=== PATIENT | female | born 1970 | race Caucasian/White ===

== ENCOUNTER → 2017-01-10 | Day surgery (SDC) | payer MEDICARE, OTHER ==
[~2017-01-10] VITALS: Ht 162.6 cm; Wt 86.1 kg
[~2017-01-10] MED LIST: ACETAMINOPHEN 1000 MG/100 ML VIAL IV ONE; DEXAMETHASONE SOD PHOS 4 MG/ML VIAL ONE; DO NOT ADM ANY ANTICOAGULANT DRUGS XX PRN; FAMOTIDINE 20 MG/2 ML VIAL ONE; MIDAZOLAM HCL 2 MG/2 ML VIAL ONE; ONDANSETRON HCL 4 MG/2 ML VIAL IV PUSH ONE; ONDANSETRON HCL 4 MG/2 ML VIAL IV PUSH PRN; OXCA600T32 PO; PERC5TAB12 PO; PROPOFOL 200 MG/20 ML AMP IV ONE; VITASPR PO; ZONE100C4 PO; ePHEDrine/NS 25 MG/5 ML SYR IV ONE; oxyCODONE/ACETAMINOPHEN 5 MG/325 MG TAB PO PRN
[2017-01-10 10:22] VITALS: BP 107/72; PULSE 62; RESP 20; TEMP 97.7; O2SAT 100
[2017-01-10 10:54] LABS: AUTOMATED NEUTROPHIL # 3.4 TH/MM3 (1.8-7.7); EOSINOPHIL # 0.1 TH/MM3 (0-0.4); EOSINOPHIL % 1.2 % (0.0-4.0); HEMATOCRIT 41.6 % (35.0-46.0); HEMO FLAGS DIFF FINAL; LYMPH % 20.6 % (9.0-44.0); MEAN CELL VOLUME 88.2 FL (80.0-100.0); MEAN CORPUSCULAR HEMOGLOBIN 30.1 PG (27.0-34.0); MEAN CORPUSCULAR HGB CONC 34.1 % (32.0-36.0); MONO % 5.3 % (0.0-8.0); NEUT % 71.9 % (16.0-70.0); PLATELET COUNT 210 TH/MM3 (150-450); RED BLOOD COUNT 4.72 MIL/MM3 (4.00-5.30); RED CELL DISTRIBUTION WIDTH 13.8 % (11.6-17.2); WHITE BLOOD COUNT 4.8 TH/MM3 (4.0-11.0)
--- NOTE | 2017-01-10 11:47 | RADRPT ---
EXAM DATE/TIME: 01/10/2017 10:26 [facility] COMPARISON: No previous studies available for comparison. INDICATIONS : Preop for left side ESWL. MEDICAL HISTORY : Renal calculi. SURGICAL HISTORY : None. ENCOUNTER: Initial ACUITY: 1 day PAIN SCORE: 0/10 LOCATION: Left upper quadrant abdomen FINDINGS: There is an approximately 6 mm calculus projecting over the mid to lower pole of the left kidney. On the right, there is a probable 4 mm lower pole calculus. No definite ureteral stone seen on either si de. Normal bowel gas pattern. No evidence of free air. Patient has an IVC filter. CONCLUSION: Subcentimeter bilateral renal stones faintly seen. Cristóbal Ruiz MD on January 10, 2017 at 11:44 Board Certified Radiologist. This report was verified electronically.
--- NOTE | 2017-01-10 14:22 | PD.OP ---
Operative Report Date of Surgery: Jan 10, 2017 Preoperative Diagnosis: (1) Renal calculus, left Postoperative Diagnosis: (1) Renal calculus, left Procedure: Left extracorporeal shockwave lithotripsy Anesthesia: General Surgeon: Demetri Grayson Microbiology Analyst(s): None Operation and Findings: Indication for procedure: Case of a pleasant 46 year-old female with a 6 mm nonobstructing left renal calculus who presents today to undergo extracorporeal shockwave lithotripsy. Operative procedure in detail: Patient was brought to the operating room suite and placed supine on the lithotripsy table. She was then placed under general anesthesia. After an appropriate timeout was undertaken I proceeded with localizing the patient's left renal calculus with fluoroscopy. She subsequently received extracorporeal shockwave lithotripsy utilizing the[place] Piezolith 3000 device. The patient received a total of 3000 shocks with a maximum power level setting of 20. 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 She tolerated the procedure without complications and was transferred to the PACU in satisfactory condition. Demetri Grayson MD Jan 10, 2017 14:22
[2017-01-10 15:15] VITALS: BP 123/79; PULSE 57; RESP 18; O2SAT 100
== END | disposition home or self-care (01) ==
LOC: HSDC 09:33
PROVIDERS: ATTEND Urology
DX: N20.0 Calculus of kidney (principal); G40.909 Epilepsy, unspecified, not intractable, without status epilepticus; F81.9 Developmental disorder of scholastic skills, unspecified
CPT/HCPCS: 00873; 50590; 74000; 85025; J0131; J1100; J2250; J2405; J3010

== ENCOUNTER → 2017-08-01 | Day surgery (SDC) | payer MEDICARE, OTHER ==
[~2017-08-01] VITALS: Ht 162.6 cm; Wt 87.8 kg
[~2017-08-01] MED LIST changes: -ACETAMINOPHEN 1000 MG/100 ML VIAL IV ONE; +CHLORHEXIDINE GLUCONATE 2 % 1 PACK (2 CLOTHS) TOPICAL PRN; +D-20TAB3 PO; +DEXAMETHASONE SOD PHOS 4 MG/ML VIAL IV ONE; -DEXAMETHASONE SOD PHOS 4 MG/ML VIAL ONE; +DO NOT ADM ANY ANTICOAGULANT DRUGS PRN; -DO NOT ADM ANY ANTICOAGULANT DRUGS XX PRN; -FAMOTIDINE 20 MG/2 ML VIAL ONE; +INSULIN HUMAN REGULAR 1,000 UNITS/10 ML VIAL SQ PRN; +LACTATED RINGER'S 1000 ML IV PRN; +LIDOCAINE HCL 1% PF 5 ML AMPULE OTHER ONE; +METOPROLOL TARTRATE 25 MG TAB PO PRN; -MIDAZOLAM HCL 2 MG/2 ML VIAL ONE; +PHENYLEPH/NS 1000 MCG/10 ML SYR IV ONE; +POVIDONE IODINE 5% (ANTISEPSIS KIT) 4 APPLICATIONS EACH NARE PRN; +SODI1TAB PO; +SODIUM CHLORID 0.9% 500 ML IV PRN; -VITASPR PO; +ZOFR4TAB3 SL
--- NOTE | 2017-08-01 09:18 | RADRPT ---
EXAM DATE/TIME: 08/01/2017 08:33 [facility] COMPARISON: ABDOMEN KUB ONLY, January 10, 2017, 10:26. INDICATIONS : Preop for lithotripsy. MEDICAL HISTORY : Renal calculi. SURGICAL HISTORY : None. ENCOUNTER: Initial ACUITY: 1 day PAIN SCORE: 0/10 LOCATION: Right abdomen FINDINGS: Vena cava filter is in good position. 4 mm stone proximal right ureter. 5 mm stone lower pole left kidney. CONCLUSION: Stones as described above. Chriss Echeverria MD FACR on August 01, 2017 at 9:16 Board Certified Radiologist. This report was verified electronically.
--- NOTE | 2017-08-01 11:18 | PD.OP ---
Operative Report Date of Surgery: Aug 01, 2017 Preoperative Diagnosis: (1) Renal calculus, bilateral Postoperative Diagnosis: (1) Renal calculus, bilateral Procedure: Extracorporeal shockwave lithotripsy of bilateral renal calculi Anesthesia: General Surgeon: Demetri Grayson Science Technician(s): None Operation and Findings: Indication for procedure: Case of a pleasant 46-year-old female with a history bilateral renal calculi who presents today to undergo extrapleural shockwave lithotripsy. Operative procedure in detail: Patient was brought to the operating suite and placed supine on the OR table. She was then placed under general endotracheal anesthesia. After an appropriate timeout was undertaken, I proceeded with localization of the patient's right renal calculus with fluoroscopy. She then received extracorporeal shockwave lithotripsy utilizing the [place] Piezolith device. The patient received a total of 1600 shocks with a maximum power setting of 5 with fragmentation of the calculus. Since only a small amount of energy was necessary to break up the stone, a decision was made to proceed with treating the contralateral side. The patient's left renal calculus was localized similar fashion and shockwave lithotripsy was commenced. The stone was treated with 3000 shocks with a maximum power setting of 5 and it appeared to spread out and lighten in intensity. The patient tolerated the procedures without complications and was transferred to the PACU in satisfactory condition. Demetri Grayson MD Aug 01, 2017 11:18
[2017-08-01 12:40] VITALS: BP 109/69; PULSE 66; RESP 16; TEMP 96.5; O2SAT 97
== END | disposition home or self-care (01) ==
LOC: HSDC 07:39
PROVIDERS: ATTEND Urology
DX: N20.0 Calculus of kidney (principal)
CPT/HCPCS: 00873; 50590; 74000; J1100; J2370; J2405; J3010